=== PATIENT | female | born 2000 | race African-American/Black ===

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

== ENCOUNTER 2020-06-20 19:44 | Emergency (ER) | payer OTHER ==
[2020-06-20] MEDS ORDERED: Ondansetron ODT 4 MG TAB ONE (20:14)
[2020-06-20] MEDS ORDERED: Acetaminophen 500 MG TAB ONE (20:14)
[2020-06-21 01:26] LABS: SARS-CoV-2 PCR by NAA Not Detected (NotDetected)
== END 2020-06-20 21:15 | disposition home or self-care (01) ==
LOC: ERS 19:44
DX: R50.9 Fever, unspecified (principal); R05 Cough; R09.81 Nasal congestion; R11.0 Nausea; Z20.822 Contact with and (suspected) exposure to COVID-19
CPT/HCPCS: 87635; 87804; 99283; Q0162; U0003; U0005

== ENCOUNTER 2020-06-23 11:40 | Emergency (ER) | payer OTHER ==
[2020-06-23] MEDS ORDERED: Acetaminophen 500 MG TAB ONE ×2 (12:27→12:28)
[2020-06-23 12:56] LABS: #Lymphocytes 1.4 thou/uL (1.20-3.40); #Monocytes 0.3 thou/uL (0.11-0.59); #Neutrophils 2.1 thou/uL (1.40-6.50); %Basophils 0.4 % (0.0-1.0); %Eosinophils 1.1 % (0.0-10.0); %Lymphocytes 35.6 % (28.0-48.0); %Monocytes 7.2 % (0.0-4.0); %Neutrophils 55.7 % (31.0-61.0); Hemoglobin 13.7 g/dL (12.0-16.0); Mean Corpuscular HGB CONC 33.3 g/dL (32.0-36.0); Mean Corpuscular Hemoglobin 27.1 pg (25.0-35.0); Mean Corpuscular Volume 81.3 fL (78.0-98.0); Mean Platelet Volume 6.9 fL (7.4-10.4); Platelet Count 259 thou/uL (130-400); RBC Distribution Width 12.5 % (11.5-14.5); Red Blood Cell (RBC) Count 5.06 mill/uL (4.00-5.20); White Blood Cell (WBC) Count 3.8 thou/uL (4.8-10.8)
[2020-06-23 13:23] LABS: ALT (SGPT) 10 U/L (8-55); AST (SGOT) 19 U/L (5-30); Alkaline Phosphatase 70 U/L (40-100); Anion Gap 11 mmol/L (10-20); BUN (Urea Nitrogen) 8 mg/dL (8.4-21.0); Bilirubin, Total 0.2 mg/dL (0.2-1.2); Calc. Creatinine Clearance 0 mL/min (70-130); Calcium 8.6 mg/dL (7.8-10.44); Carbon Dioxide 24 mmol/L (22-29); Chloride 103 mmol/L (98-107); Globulin 3.7 g/dL (2.4-3.5); Glucose 86 mg/dL (70-105); Lipase 19 U/L (8-78); Potassium 3.8 mmol/L (3.5-5.1); Protein, Total 7.7 g/dL (6.0-8.3); Sodium 134 mmol/L (136-145)
[2020-06-23 13:24] LABS: Bacteria/HPF None Seen HPF (None Seen); Bilirubin Negative (Negative); Blood, Urine Trace (Negative); Clarity Clear (Clear); Glucose, Urine (Dipstick) Normal (Negative); Ketone, Urine Negative (Negative); Leukocyte Negative Leu/uL (Negative); Nitrite Negative (Negative); Protein, Urine (Dipstick) 20 mg/dL (Neg-Trace); Specific Gravity, Urine 1.026 (1.002-1.036); WBC/HPF 0-3 HPF (0-3); pH, Urine 6.5 (5.0-9.0)
[2020-06-23 13:25] LABS: Pregnancy Test - Urine (BHCG) Negative (Negative); Pregu Control Background? CLEAR/WHITE (CLR/WHITE); Pregu Control Bar Appear? YES (CONTROL BAR); Specific Gravity 1.026 (1.002-1.036)
[2020-06-23] MEDS ORDERED: cefTRIAXone\\ROCEPHIN 500 MG VIAL ONE (15:19)
[2020-06-25 22:21] LABS: Chlamydia by PCR Not Detected (NotDetected); GC by PCR Not Detected (NotDetected)
== END 2020-06-23 16:18 | disposition home or self-care (01) ==
LOC: ERS 11:40
DX: N76.0 Acute vaginitis (principal); B96.89 Other specified bacterial agents as the cause of diseases classified elsewhere
CPT/HCPCS: 76856; 80053; 81003; 81015; 81025; 83690; 85025; 87086; 87480; 87491; 87510; 87591; 87660; 96365; J0696

== ENCOUNTER 2020-07-25 04:26 | Emergency (ER) | payer OTHER ==
[2020-07-25 06:00] LABS: BHCG - Serum Negative (NEGATIVE); Pregs Control Background? CLEAR/WHITE (CLR/WHITE); Pregs Control Bar Appear? YES (CONTROL BAR)
== END 2020-07-25 09:15 | disposition left against medical advice (07) ==
LOC: ERS 04:26
DX: Z53.21 Procedure and treatment not carried out due to patient leaving prior to being seen by health care provider (principal)
CPT/HCPCS: 36415; 84703

== ENCOUNTER 2020-12-08 00:14 | Emergency (ER) | payer OTHER ==
[2020-12-08 00:44] LABS: Bacteria/HPF 1+ HPF (None Seen); Bilirubin Negative (Negative); Blood, Urine 3+ (Negative); Clarity Clear (Clear); Glucose, Urine (Dipstick) Normal (Negative); Ketone, Urine Negative (Negative); Leukocyte 500 Leu/uL (Negative); Nitrite Negative (Negative); Protein, Urine (Dipstick) Negative (Neg-Trace); RBC/HPF 0-3 HPF (0-3); Squamous Epithelial 0-3 HPF (0-3); WBC/HPF 21-50 HPF (0-3); pH, Urine 6.5 (5.0-9.0)
[2020-12-08 00:46] LABS: Pregnancy Test - Urine (BHCG) POSITIVE (Negative)
[2020-12-08 00:47] LABS: Pregu Control Background? CLEAR/WHITE (CLR/WHITE); Pregu Control Bar Appear? YES (CONTROL BAR)
[2020-12-08] MEDS ORDERED: Ondansetron ODT 4 MG TAB ONE (01:55)
[2020-12-08] MEDS ORDERED: Acetaminophen 500 MG TAB ONE (01:55)
== END 2020-12-08 02:50 | disposition home or self-care (01) ==
LOC: ERS 00:14
DX: N39.0 Urinary tract infection, site not specified (principal)
CPT/HCPCS: 81003; 81015; 81025; 99284; Q0162

== ENCOUNTER 2021-01-10 13:56 | Emergency (ER) | payer OTHER ==
[2021-01-10 15:46] LABS: Bacteria/HPF None Seen HPF (None Seen); Bilirubin Negative (Negative); Blood, Urine Negative (Negative); Clarity Clear (Clear); Glucose, Urine (Dipstick) Normal (Negative); Ketone, Urine Negative (Negative); Leukocyte 75 Leu/uL (Negative); Nitrite Negative (Negative); Protein, Urine (Dipstick) Negative (Neg-Trace); RBC/HPF 0-3 HPF (0-3); Specific Gravity, Urine 1.006 (1.002-1.036); Squamous Epithelial 0-3 HPF (0-3); Urobilinogen Normal mg/dL (Less than 2); WBC/HPF 0-3 HPF (0-3); pH, Urine 6.5 (5.0-9.0)
[2021-01-10 15:47] LABS: Pregnancy Test - Urine (BHCG) Negative (Negative); Pregu Control Background? CLEAR/WHITE (CLR/WHITE); Pregu Control Bar Appear? YES (CONTROL BAR); Specific Gravity 1.006 (1.002-1.036)
[2021-01-10] MEDS ORDERED: Ketorolac Tromethamine 30 MG/ML VIAL ONE (15:50)
== END 2021-01-10 15:58 | disposition home or self-care (01) ==
LOC: ERS 13:56
DX: M54.50 Low back pain, unspecified (principal)
CPT/HCPCS: 81003; 81015; 81025; 96372; 99283; J1885

== ENCOUNTER 2021-03-22 21:57 | Emergency (ER) | payer OTHER ==
[2021-03-22 23:32] LABS: #Eosinphils 0.1 thou/uL (0.0-0.7); #Lymphocytes 2.4 thou/uL (1.20-3.40); #Monocytes 0.3 thou/uL (0.11-0.59); #Neutrophils 4.5 thou/uL (1.40-6.50); %Basophils 0.6 % (0.0-1.0); %Eosinophils 0.7 % (0.0-10.0); %Lymphocytes 32.5 % (28.0-48.0); %Monocytes 4.5 % (0.0-4.0); %Neutrophils 61.7 % (31.0-61.0); Hemoglobin 13.1 g/dL (12.0-16.0); Mean Corpuscular HGB CONC 35.5 g/dL (32.0-36.0); Mean Corpuscular Hemoglobin 29.5 pg (25.0-35.0); Mean Corpuscular Volume 82.9 fL (78.0-98.0); Mean Platelet Volume 6.8 fL (7.4-10.4); Platelet Count 274 thou/uL (130-400); RBC Distribution Width 11.9 % (11.5-14.5); Red Blood Cell (RBC) Count 4.46 mill/uL (4.00-5.20); White Blood Cell (WBC) Count 7.4 thou/uL (4.8-10.8)
[2021-03-22 23:55] LABS: ALT (SGPT) 7 U/L (8-55); AST (SGOT) 12 U/L (5-34); Albumin 3.7 g/dL (3.5-5.0); Alkaline Phosphatase 53 U/L (40-100); Anion Gap 12 mmol/L (10-20); BUN (Urea Nitrogen) 5 mg/dL (7.0-18.7); Bilirubin, Total 0.4 mg/dL (0.2-1.2); Calc. Creatinine Clearance 0 mL/min (70-130); Calcium 9.4 mg/dL (7.8-10.44); Carbon Dioxide 20 mmol/L (22-29); Chloride 106 mmol/L (98-107); Globulin 3.3 g/dL (2.4-3.5); Glucose 99 mg/dL (70-105); Lipase 20 U/L (8-78); Potassium 3.7 mmol/L (3.5-5.1); Sodium 134 mmol/L (136-145)
[2021-03-23 00:59] LABS: BHCG - Serum POSITIVE (NEGATIVE); Pregs Control Background? CLEAR/WHITE (CLR/WHITE); Pregs Control Bar Appear? YES (CONTROL BAR)
[2021-03-23 00:59] LABS: Bilirubin Negative (Negative); Blood, Urine Negative (Negative); Clarity Clear (Clear); Glucose, Urine (Dipstick) Normal (Negative); Ketone, Urine Negative (Negative); Leukocyte Negative Leu/uL (Negative); Nitrite Negative (Negative); Protein, Urine (Dipstick) Negative (Neg-Trace); Specific Gravity, Urine 1.017 (1.002-1.036); pH, Urine 6.5 (5.0-9.0)
[2021-03-23 01:01] LABS: Pregnancy Test - Urine (BHCG) POSITIVE (Negative); Pregu Control Background? CLEAR/WHITE (CLR/WHITE); Pregu Control Bar Appear? YES (CONTROL BAR); Specific Gravity 1.017 (1.002-1.036)
[2021-03-23] MEDS ORDERED: diphenhydrAMINE 50 MG/ML VIAL ONE (01:10)
[2021-03-23] MEDS ORDERED: Metoclopramide HCl 10 MG/2 ML VIAL ONE (01:10)
[2021-03-23] MEDS ORDERED: Ondansetron ODT 8 MG TAB ONE (01:10)
== END 2021-03-23 02:56 | disposition home or self-care (01) ==
LOC: ERS 21:57
DX: O99.891 Other specified diseases and conditions complicating pregnancy (principal); R51.9 Headache, unspecified; R11.2 Nausea with vomiting, unspecified; Z3A.08 8 weeks gestation of pregnancy
CPT/HCPCS: 36415; 76856; 80053; 81003; 81025; 83690; 84702; 84703; 85025; 93976; 96372; J1200; J2765; Q0162

== ENCOUNTER 2021-09-01 16:39 | Emergency (ER) | payer OTHER ==
[2021-09-01 17:47] LABS: #Eosinphils 0.1 thou/uL (0.0-0.7); #Lymphocytes 1.8 thou/uL (1.20-3.40); #Monocytes 0.5 thou/uL (0.11-0.59); #Neutrophils 5.4 thou/uL (1.40-6.50); %Basophils 0.3 % (0.0-1.0); %Eosinophils 1.2 % (0.0-10.0); %Lymphocytes 23.2 % (28.0-48.0); %Neutrophils 69.3 % (31.0-61.0); Hemoglobin 9.2 g/dL (12.0-16.0); Mean Corpuscular HGB CONC 34.6 g/dL (32.0-36.0); Mean Corpuscular Hemoglobin 28.1 pg (25.0-35.0); Mean Corpuscular Volume 81.3 fL (78.0-98.0); Mean Platelet Volume 6.6 fL (7.4-10.4); Platelet Count 219 thou/uL (130-400); RBC Distribution Width 12.3 % (11.5-14.5); Red Blood Cell (RBC) Count 3.27 mill/uL (4.00-5.20); White Blood Cell (WBC) Count 7.8 thou/uL (4.8-10.8)
[2021-09-01] MEDS ORDERED: Ondansetron PF 4 MG/2 ML Vial ONE (17:58)
[2021-09-01] MEDS ORDERED: Acetaminophen 500 MG TAB ONE (17:58)
[2021-09-01 18:05] LABS: ALT (SGPT) 8 U/L (8-55); AST (SGOT) 12 U/L (5-34); Alkaline Phosphatase 65 U/L (40-100); Anion Gap 9 mmol/L (10-20); BUN (Urea Nitrogen) 4 mg/dL (7.0-18.7); Bilirubin, Total 0.4 mg/dL (0.2-1.2); Calc. Creatinine Clearance 0 mL/min (70-130); Calcium 8.6 mg/dL (7.8-10.44); Carbon Dioxide 21 mmol/L (22-29); Chloride 109 mmol/L (98-107); Glucose 106 mg/dL (70-105); Magnesium 1.8 mg/dL (1.7-2.2); Potassium 3.6 mmol/L (3.5-5.1); Sodium 135 mmol/L (136-145)
[2021-09-01 18:30] LABS: Bacteria/HPF 4+ HPF (None Seen); Bilirubin Negative (Negative); Blood, Urine Negative (Negative); Glucose, Urine (Dipstick) Normal (Negative); Ketone, Urine Negative (Negative); Leukocyte 500 Leu/uL (Negative); Nitrite Negative (Negative); Protein, Urine (Dipstick) 30 mg/dL (Neg-Trace); RBC/HPF 0-3 HPF (0-3); Specific Gravity, Urine 1.026 (1.002-1.036); Squamous Epithelial 21-50 HPF (0-3); Urobilinogen 3 mg/dL (Less than 2); pH, Urine 6.5 (5.0-9.0)
[2021-09-01 18:36] LABS: Clarity Turbid (Clear)
== END 2021-09-01 19:21 | disposition home or self-care (01) ==
LOC: ERS 16:39
DX: O23.43 Unspecified infection of urinary tract in pregnancy, third trimester (principal); N39.0 Urinary tract infection, site not specified; O99.613 Diseases of the digestive system complicating pregnancy, third trimester; R19.7 Diarrhea, unspecified; O99.513 Diseases of the respiratory system complicating pregnancy, third trimester; R06.02 Shortness of breath; O99.891 Other specified diseases and conditions complicating pregnancy; E86.0 Dehydration; R51.9 Headache, unspecified; Z3A.31 31 weeks gestation of pregnancy
CPT/HCPCS: 36415; 80053; 81003; 81015; 83735; 85025; 96361; 96374; J2405

== ENCOUNTER 2022-07-17 18:53 | Emergency (ER) | payer OTHER ==
[~2022-07-17 18:53] MED LIST changes: -Acetaminophen 325 MG TAB PO PRN; -Adacel (T-DAP) 0.5 ML SYRINGE IM ONE; -Bisacodyl 10 MG SUPP PR PRN; -Bupivacaine/Epinephrine 0.25% 30 ML VIAL ONE; -Butorphanol Tartrate 1 MG/ML VIAL SLOW IVP PRN; -Communication Order-Pharmacy FS SCH; -Docusate 100 MG CAP PO PRN; -Fentanyl 4 mcg/Bup 0.1% Cadd 100 ML ONE; -Fentanyl 4 mcg/Bupivacaine 0.1% Cassette 100 ML EPIDURAL SCH; +Iopamidol-370 76% 500 ML MDV (1 ML CHARGE) ONE; -Lactated Ringer's 500 ML IV PRN; -Lanolin Ointment 7 GM TUBE TOP PRN; -Lidocaine 1% (PF) 30 ML VIAL SC PRN; -Lidocaine 2% MPF 10 ML AMP (For Epidural Use) ONE; -Milk Of Magnesia 30 ML UDCUP PO PRN; -Misoprostol 100 MCG TAB VAG SCH; -NS / Oxytocin 40 units/1000ml 1,000 ML IV SCH; -NS w/ Oxytocin 10 units 500 ML IV SCH; -Naloxone HCl 0.4 mg/ml Vial IVP PRN; -Ondansetron PF 4 MG/2 ML Vial IVP PRN; -Promethazine HCl 25 MG/ML VIAL IM PRN; -diphenhydrAMINE 50 MG/ML VIAL IVP PRN; -ePHEDrine/0.9% NaCl/PF SYRINGE 50 mg/10 ml SLOW IVP PRN; -hydrALAZINE 20 MG/ML VIAL SLOW IVP PRN
[2022-07-17] MEDS ORDERED: Morphine 4 MG/ML VIAL ONE (19:28)
[2022-07-17 20:04] LABS: #Eosinphils 0.2 thou/uL (0.0-0.7); #Lymphocytes 2.6 thou/uL (1.20-3.40); #Monocytes 0.5 thou/uL (0.11-0.59); #Neutrophils 4.2 thou/uL (1.40-6.50); %Basophils 0.3 % (0.0-1.0); %Eosinophils 2.9 % (0.0-10.0); %Lymphocytes 34.7 % (21.0-51.0); %Monocytes 6.4 % (0.0-10.0); %Neutrophils 55.6 % (42.0-75.0); Hemoglobin 14.2 g/dL (12.0-16.0); Mean Corpuscular HGB CONC 34.6 g/dL (32.0-36.0); Mean Corpuscular Hemoglobin 27.6 pg (27.0-31.0); Mean Corpuscular Volume 79.9 fl (78.0-98.0); Mean Platelet Volume 7.5 fL (7.4-10.4); Platelet Count 290 10x3/uL (130-400); RBC Distribution Width 13.7 % (11.5-14.5); Red Blood Cell (RBC) Count 5.14 mill/uL (4.20-5.40); White Blood Cell (WBC) Count 7.6 10x3/uL (4.8-10.8)
[2022-07-17 20:19] LABS: BHCG - Serum Negative (NEGATIVE); Pregs Control Background? CLEAR/WHITE (CLR/WHITE); Pregs Control Bar Appear? YES (CONTROL BAR)
[2022-07-17 20:27] LABS: ALT (SGPT) 16 U/L (8-55); AST (SGOT) 21 U/L (5-34); Albumin 4.1 g/dL (3.5-5.0); Alkaline Phosphatase 72 U/L (40-110); Anion Gap 13 mmol/L (10-20); BUN (Urea Nitrogen) 9 mg/dL (7.0-18.7); Bilirubin, Total 0.4 mg/dL (0.2-1.2); Calc. Creatinine Clearance 0 mL/min (70-130); Calcium 9.2 mg/dL (7.8-10.44); Carbon Dioxide 20 mmol/L (22-29); Chloride 108 mmol/L (98-107); Estimated GFR 127; Globulin 3.7 g/dL (2.4-3.5); Glucose 90 mg/dL (70-105); Lipase 21 U/L (8-78); Potassium 3.7 mmol/L (3.5-5.1); Protein, Total 7.8 g/dL (6.0-8.3); Sodium 137 mmol/L (136-145)
== END 2022-07-17 21:46 | disposition home or self-care (01) ==
LOC: ERS 18:53
DX: S05.11XA Contusion of eyeball and orbital tissues, right eye, initial encounter (principal); S30.1XXA Contusion of abdominal wall, initial encounter; Y04.8XXA Assault by other bodily force, initial encounter
CPT/HCPCS: 36415; 70450; 70486; 71045; 74177; 80053; 83605; 83690; 84703; 85025; 96372; J2270; Q9967

== ENCOUNTER 2022-10-23 22:27 | Emergency (ER) | payer OTHER ==
[2022-10-23] MEDS ORDERED: Ketorolac Tromethamine 30 MG/ML VIAL ONE (22:55)
== END 2022-10-23 23:40 | disposition home or self-care (01) ==
LOC: ERS 22:27
DX: S83.92XA Sprain of unspecified site of left knee, initial encounter (principal); W50.0XXA Accidental hit or strike by another person, initial encounter
CPT/HCPCS: 96372; J1885

== ENCOUNTER 2022-11-12 03:24 | Emergency (ER) | payer OTHER, SELFPAY | END 2022-11-12 05:06 | disposition home or self-care (01) | LOC: ERS 03:24 | DX: S09.90XA Unspecified injury of head, initial encounter (principal); X99.0XXA Assault by sharp glass, initial encounter | CPT/HCPCS: 70450 ==

== ENCOUNTER 2023-02-01 17:58 | Emergency (ER) | payer OTHER, SELFPAY ==
[~2023-02-01 17:58] MED LIST changes: +Iopamidol 370 76% 100 ML VIAL ONE; -Iopamidol-370 76% 500 ML MDV (1 ML CHARGE) ONE
[2023-02-01 19:35] LABS: #Eosinphils 0.1 thou/uL (0.0-0.7); #Monocytes 0.5 thou/uL (0.11-0.59); #Neutrophils 4.2 thou/uL (1.40-6.50); %Basophils 0.4 % (0.0-1.0); %Eosinophils 1.7 % (0.0-10.0); %Lymphocytes 36.7 % (21.0-51.0); %Monocytes 6.9 % (0.0-10.0); %Neutrophils 54.2 % (42.0-75.0); Hematocrit 43.4 % (36.0-47.0); Hemoglobin 14.3 g/dL (12.0-16.0); Mean Corpuscular HGB CONC 32.9 g/dL (32.0-36.0); Mean Corpuscular Hemoglobin 27.5 pg (27.0-31.0); Mean Corpuscular Volume 83.5 fl (78.0-98.0); Mean Platelet Volume 9.6 fL (7.4-10.4); Platelet Count 345 10x3/uL (130-400); RBC Distribution Width 13.3 % (11.5-14.5); White Blood Cell (WBC) Count 7.7 10x3/uL (4.8-10.8)
[2023-02-01 20:00] LABS: Albumin 4.7 g/dL (3.5-5.0)
[2023-02-01 20:01] LABS: Chloride 107 mmol/L (98-107); Potassium 4.5 mmol/L (3.5-5.1); Sodium 137 mmol/L (136-145)
[2023-02-01 20:02] LABS: Calcium 10.2 mg/dL (7.8-10.44); Glucose 82 mg/dL (70-105)
[2023-02-01 20:03] LABS: Globulin 3.5 g/dL (2.4-3.5); Protein, Total 8.2 g/dL (6.0-8.3)
[2023-02-01 20:04] LABS: Anion Gap 13 mmol/L (10-20); Carbon Dioxide 22 mmol/L (22-29)
[2023-02-01 20:05] LABS: Alkaline Phosphatase 72 U/L (40-110)
[2023-02-01 20:06] LABS: BUN (Urea Nitrogen) 12 mg/dL (7.0-18.7); Calc. Creatinine Clearance 0 mL/min (70-130); Estimated GFR 95
[2023-02-01 20:08] LABS: ALT (SGPT) 18 U/L (8-55); AST (SGOT) 20 U/L (5-34); Lipase 31 U/L (8-78)
[2023-02-01 20:19] LABS: Bilirubin, Total 0.3 mg/dL (0.2-1.2)
[2023-02-01 21:48] LABS: Bacteria/HPF 2+ HPF (None Seen); Bilirubin Negative (Negative); Blood, Urine 3+ (Negative); CAUTI Indications for Culture Pelvic or flank pain; Clarity Clear (Clear); Glucose, Urine (Dipstick) Normal (Negative); Ketone, Urine Negative (Negative); Leukocyte 25 Leu/uL (Negative); Nitrite Negative (Negative); Protein, Urine (Dipstick) Negative (Neg-Trace); RBC/HPF 0-3 HPF (0-3); Specific Gravity, Urine 1.019 (1.002-1.036); Urobilinogen Normal mg/dL (Less than 2); WBC/HPF 0-3 HPF (0-3); pH, Urine 6.5 (5.0-9.0)
[2023-02-01] MEDS ORDERED: Ondansetron ODT 4 MG TAB ONE (21:48)
[2023-02-01 21:49] LABS: Pregnancy Test - Urine (BHCG) Negative (Negative); Pregu Control Background? CLEAR/WHITE (CLR/WHITE); Pregu Control Bar Appear? YES (CONTROL BAR); Specific Gravity 1.019 (1.002-1.036)
[2023-02-01 21:50] LABS: Urine Culture Reflex No No
[2023-02-02] MEDS ORDERED: Lidocaine 1% PF 5 ML VIAL ONE (00:17)
[2023-02-02] MEDS ORDERED: cefTRIAXone (ROCEPHIN) 500 MG VIAL ONE (00:17)
[2023-02-03 05:31] LABS: Chlamydia by PCR, Vaginal Swab Not Detected (NotDetected); GC by PCR, Vaginal Swab Not Detected (NotDetected)
== END 2023-02-02 00:31 | disposition home or self-care (01) ==
LOC: ERS 17:58
DX: N76.0 Acute vaginitis (principal)
CPT/HCPCS: 36415; 74177; 80053; 81001; 81025; 83690; 85025; 87480; 87491; 87510; 87591; 87660; 96372; J0696; Q0162; Q9967

== ENCOUNTER 2023-02-11 19:47 | Emergency (ER) | payer OTHER, SELFPAY ==
[2023-02-11] MEDS ORDERED: Acetaminophen 500 MG TAB ONE (22:23)
== END 2023-02-11 22:36 | disposition home or self-care (01) ==
LOC: ERS 19:47
DX: M54.50 Low back pain, unspecified (principal); V89.2XXA Person injured in unspecified motor-vehicle accident, traffic, initial encounter
CPT/HCPCS: 71045

== ENCOUNTER 2023-09-01 05:16 | Emergency (ER) | payer OTHER, SELFPAY | END 2023-09-01 06:39 | disposition left against medical advice (07) | LOC: ERS 05:16 | DX: Z53.21 Procedure and treatment not carried out due to patient leaving prior to being seen by health care provider (principal) | CPT/HCPCS: 99282 ==

== ENCOUNTER 2023-09-28 17:43 | Emergency (ER) | payer SELFPAY | END 2023-09-28 18:03 | disposition home or self-care (01) | LOC: ERS 17:43 | DX: M62.830 Muscle spasm of back (principal) | CPT/HCPCS: 99282 ==